=== PATIENT | female | born 1935 | race Caucasian/White ===

== ENCOUNTER 2018-11-26 18:44 | Inpatient (IN) | payer OTHER, BC ==
[~2018-11-26] VITALS: Ht 157.5 cm; Wt 56.2 kg
[2018-11-26 18:46] VITALS: BP 143/76
[2018-11-26 20:53] LABS: ABSOLUTE NEUTROPHILS 5.1 thou/uL (1.4-8.2); BASOPHILS 0.8 % (0.0-2.0); EOSINOPHILS 4.6 % (0.0-3.0); HEMATOCRIT 32.9 % (37.0-47.0); HEMOGLOBIN 10.9 gm/dL (12.0-15.0); LYMPHOCYTES 17.1 % (24.0-44.0); MCH 29.4 pg (26.0-34.0); MCHC 33.2 g/dL (28.0-37.0); MCV 88.5 fL (80.0-100.0); MONOCYTES 6.6 % (1.0-8.0); PLATELET COUNT 502 thou/uL (150-400); POLYS 70.9 % (36.0-66.0); RBC 3.71 mil/uL (4.20-5.00); WBC 7.2 thou/uL (4.0-11.0)
[2018-11-26 20:54] LABS: URINE BILIRUBIN NEGATIVE (Negative); URINE BLOOD NEGATIVE (Negative); URINE CLARITY SL CLOUDY; URINE COLOR YELLOW; URINE GLUCOSE-RANDOM* NEGATIVE (Negative); URINE KETONES TRACE (Negative); URINE PROTEIN (DIPSTICK) TRACE (Negative); URINE SPECIFIC GRAVITY 1.015 (1.005-1.035); URINE UROBILINOGEN 0.2 E.U./dl (0.2-1.0)
[2018-11-26 20:57] LABS: URINE LEUKOCYTES-REFLEX 1+ (Negative); URINE NITRITE-REFLEX POSITIVE (Negative)
[2018-11-26 21:01] LABS: BACTERIA-REFLEX >30 Many /HPF (None Seen); CRYSTALS None Seen /LPF (None Seen); HYALINE CASTS 0-3 Few /LPF (None Seen); SQUAMOUS 0-3 Few /LPF (0-3); URINE RBC 3-10 Few /HPF (0-2); URINE WBC-REFLEX 6-15 Few /HPF (0-5)
[2018-11-26 21:04] LABS: ANION GAP 12 mmol/L (7-16); BUN 31 mg/dL (7-18); CALCIUM 9.2 mg/dL (8.5-10.1); CHLORIDE 97 mmol/L (98-107); CO2 25 mmol/L (21-32); CREATININE 1.2 mg/dL (0.6-1.0); GLUCOSE 148 mg/dL (74-106); SODIUM 134 mmol/L (136-145)
[2018-11-26 21:04] LABS: AMP/METHAMP Negative (Negative); BARBITURATES Negative (Negative); BENZODIAZEPINES Negative (Negative); COCAINE Negative (Negative); METHADONE Negative (Negative); OPIATES Negative (Negative); PCP Negative (Negative)
[2018-11-26 21:08] LABS: ALBUMIN 2.7 g/dL (3.4-5.0); SALICYLATE < 2.8 mg/dL (2.8-20.0); SGOT 7 U/L (15-37); SGPT 14 U/L (30-65); TOTAL BILIRUBIN 0.2 mg/dL (<0.1-1.0); TOTAL PROTEIN 7.8 g/dL (6.4-8.2)
[2018-11-26 22:07] VITALS: BP 118/56
[2018-11-26 23:30] VITALS: BP 134/70
[2018-11-27 00:33] VITALS: BP 144/73
--- NOTE | 2018-11-27 02:21 | NUR ---
HEAD TO TOE ASSESSMENT COMPLETE. RLE R ANKLE BRUISE [id number]. L LE ANTERIOR BRUISE AND OPENED SCAB NOTED. LLE POSTERIOR BRUISE NOTED. L UE BRUISE 4CM X 6CM. D/C IV SITE WITHOUT REDNESS, HEAT NOTED. BLOOD DRAW BY LAB IN L AC. R UE BRUISE TO HAND 5CM X 5 CM NOTED. 2 SCABS AT R WRIST. ONE SCAB IS 3CM X 3 CM. SECOND SCAB IS 1CM X 1CM.
--- NOTE | 2018-11-27 06:40 | NUR ---
SLEPT 4.0 HOURS. AT TIMES WAS SITTING UP IN BED AND TAKING HOSPITAL GOWN OFF. DENIED NEEDS, BUT COULD NOT SAY WHAT SHE WAS DOING OR WHAT SHE WANTED.
--- NOTE | 2018-11-27 07:55 | EKG ---
[place] [address] [facility] [place] [address] ELECTROCARDIOGRAM REPORT Name: NASRIN ELMORE Room #: 524B-B ADM IN M.R.#: [id number] ������������������ Admission: 11/26/18 ������������������ Attend Phys: Hernan Hines MD Discharge: ������������������ Date of : 31 Report #: [id number] ����������������������������������������������������������������� [id number] THIS REPORT FOR: //name// [facility] ED Test Date: 2018-11-26 Test Time: 21:05:23 Pat Name: NASRIN ELMORE Department: Room: [facility] Gender: F 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: NATTY : [id number] Requested By: Matthew Echavarria Order Number: [id number] MD: Trey Dalton Measurements Intervals [place] Rate: 72 P: 6 [place]: 176 QRS: 15 QRSD: 91 T: 43 QT: 390 QTc: 427 Interpretive Statements Sinus rhythm Atrial premature complexes No previous ECG available for comparison Electronically Signed On 11-27-2018 7:55:02 TANK TESTER by Trey Dalton [email or web address] ��������������������������������������������� <ELECTRONICALLY SIGNED> ���������������������������������������� By: Trey Dalton MD, [facility] ��������������������������������������������� 11/27/18 [id number] 04 Trey Dalton MD, FACC /EPI
[2018-11-27 12:28] VITALS: BP 158/71
--- NOTE | 2018-11-27 15:10 | NUR ---
PATIENT HAS BEEN UP AND OUT ON THE UNIT MOST OF THE SHIFT. PATIENT TOOK ALL HER MEDICATION WHOLE IN APPLE SOURCE WITHOUT DIFFICULTY. APPETITE IS VERY GOOD, PATIENT CONSUMED 100% OF BREAKFAST AND 100% LUNCH, SHE DRINKING FLUID WELL TOO. PATIENT RESPONDS SLOWLY, BUT APPROPRIATELY TO ASSESSMENT QUESTIONS. SHE DENIES SUICIDAL AND HOMOCIDAL IDEATION. SHE HAS BEEN CALM, COOPERATIVE WITH CARE. NO AGGRESSION, OR AGITATION NOTED. PATIENT IS CURRENTLY IN ART GROUP, PARTICIPATING ACTIVELY. PRN TYLENOL 650MG GIVEN FOR LOW BACK PAIN RATED 2/10, WITH POSITIVE EFFECT, WILL MONITOR FOR SAFETY.
[2018-11-27 16:12] VITALS: BP 158/71
[2018-11-27 19:25] VITALS: BP 118/51
--- NOTE | 2018-11-27 23:50 | NUR ---
ASSUMED CARE @19:15. SITTING IN THE DAYROOM WITH PEERS AND AIDE. VS 118/51 99 18 98.1F 98% ON ROOM AIR. 2100 CLONIDINE HELD D/T B/P OF 118/51. AMBULATES WITH X1 ASSIST AND GAIT BELT. WAS ABLE TO SWOLLOW MEDS WHOLE IN APPLESAUCE. EYEDROPS PROVIDED ORDERED. ABLE TO ANSWER QUESTIONS SLOWLY, APPEARS TO THINK ABOUT THE ANSWER BEFORE FORMING SPEACH. DENIES SI, HI. NO AGRESSIVE BEHAVIORS NOTED. ESCORTED TO BED X1 ASSIST WITH GAIT BELT @ 22:15, SLEEPING AT THIS WRITING. WILL CONTINUE TO MONITOR.
--- NOTE | 2018-11-28 05:48 | NUR ---
SLEPT 8 HOURS. UP TO BEDSIDE COMODE AND THEN AMBULATE X2 ASSIST WITH GAIT BELT INTO DAY ROOM @05:45.
[2018-11-28 09:01] VITALS: BP 150/72
[2018-11-28 14:29] VITALS: BP 150/72
[2018-11-28 15:58] VITALS: BP 150/72
--- NOTE | 2018-11-28 18:17 | NUR ---
ASSUMED CARE AT 0715 TODAY. HAS BEEN ON THE UNIT MUCH OF THE DAY. ATTENDED GROUPS. HAS NOT MADE ANY SI/HI, VAH STATEMENTS TODAY. ATE MEALS ON THE UNIT. HAS NOT SPOKE MUCH TO STAFF, ONLY ANSWERING QUESTIONS WITH ONE WORD ANSWERS. NO ACTING OUT BEHAVIORS NOTED.
[2018-11-28 19:23] VITALS: BP 89/54
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
[2018-11-28 23:51] VITALS: BP 101/48
--- NOTE | 2018-11-29 05:03 | NUR ---
PATIENT ALERT AND ORIENTED XSELF. PATIENT RESPONDS SLOWLY AND IN SINGLE WORD RESPONSES. DOES NOT APPEAR TO BE IN PAIN. AMBULATES WITH ASSIST AND A WALKER. MULTIPLE EYE DROPS APPLIED TO R EYE. SLEPT MOST OF NIGHT.
[2018-11-29 05:48] LABS: HEMATOCRIT 29.1 % (37.0-47.0); HEMOGLOBIN 9.6 gm/dL (12.0-15.0); MCH 29.1 pg (26.0-34.0); MCHC 33.1 g/dL (28.0-37.0); MCV 87.8 fL (80.0-100.0); RBC 3.31 mil/uL (4.20-5.00); RDW 13.8 % (10.5-14.5); WBC 5.5 thou/uL (4.0-11.0)
[2018-11-29 06:03] LABS: CREATININE 1.4 mg/dL (0.6-1.0)
[2018-11-29 07:50] VITALS: BP 144/74
--- NOTE | 2018-11-29 15:36 | NUR ---
WOUND CONSULT: PT. WAS SEEN TODAY FOR SKIN EVALUATION. PT. IS SUFFERING WITH BILATERAL LOWER EXTREMITY HEMOSIDERIN STAINING ALONG WITH PURAPA. PT. ALSO HAS BILATERAL LOWER EXTERMITY EDEMA. PT. HAS SOME DRAINAGE IN HER LEFT LOWER EXTERMITY IN RELATION TO THIS. THERE ARE NO SIGNS OR SYMPTOMS OF INFECTION AT THIS TIME. RECOMMENDATIONS: WOUND CARE TO BILATERAL LOWER EXTREMITYS: GENTLY CLEANSE, APPLY LOTION TO HIS BILATERAL LOWER EXTREMITYS, COVER ANY WEEPING AREAS WITH BORDERED FOAM, APPLY BILATERAL TUBIGRIPS TO BILATERAL LOWER EXTREMITYS, KEEP LOWER EXTREMITYS ELEVATED. PT. AND STAFF NURSE WERE INSTRUCTED ON PLAN OF CARE.
--- NOTE | 2018-11-29 18:14 | NUR ---
VERY LITTLE COMMUNICATION. AMBULATED TO DINNING ROOM FOR BREAKFAST, VERY POOR APPETITE FOR BREAKFAST AND SPTTING OUT FOOD. MORE ALERT FOR LUNCH AND FED SELF 75% OF MEAL CONSUMED. IV STARTED BY IV NURSE AND 500ML BOLUS OF SALINE INFUSING AT 125 AN HOUR. REMAINED CONTINENT OF URINE VOIDED IN COMMODE AND URINE CULTURE SENT TO LAB. SON CAME INTO MEETING WITH DR AND INSTANTIZER OPERATOR. CONTINUE TO CHECK EVERY 12 MINUTES.
[2018-11-29 18:16] LABS: URINE BILIRUBIN NEGATIVE (Negative); URINE BLOOD NEGATIVE (Negative); URINE CLARITY CLEAR; URINE COLOR YELLOW; URINE GLUCOSE-RANDOM* NEGATIVE (Negative); URINE KETONES NEGATIVE (Negative); URINE LEUKOCYTES 1+ (Negative); URINE NITRITE NEGATIVE (Negative); URINE PROTEIN (DIPSTICK) NEGATIVE (Negative); URINE UROBILINOGEN 0.2 E.U./dl (0.2-1.0)
[2018-11-29 18:23] LABS: SQUAMOUS 0-3 Few /LPF (0-3)
[2018-11-29 18:24] LABS: BACTERIA 1-9 Few /HPF (None Seen); CASTS None Seen /LPF (None Seen); CRYSTALS None Seen /LPF (None Seen); URINE RBC None Seen /HPF (0-2); URINE WBC 0-5 Rare /HPF (0-5)
[2018-11-29 20:08] VITALS: BP 140/77
--- NOTE | 2018-11-30 01:14 | NUR ---
Alert, nonverbal, calm and cooperative; vss, afebrile. Patient took medication with apple sauce, tolerated well, no signs of n/v. Patient bed rest now, with eyes closed, chest up and down. will keep monitoring.
[2018-11-30 05:36] LABS: HEMATOCRIT 31.8 % (37.0-47.0); HEMOGLOBIN 10.4 gm/dL (12.0-15.0); MCH 29.1 pg (26.0-34.0); MCHC 32.8 g/dL (28.0-37.0); MCV 88.6 fL (80.0-100.0); RBC 3.59 mil/uL (4.20-5.00); RDW 13.9 % (10.5-14.5); WBC 5.1 thou/uL (4.0-11.0)
[2018-11-30 05:43] LABS: CALCIUM 8.9 mg/dL (8.5-10.1); MAGNESIUM 2.3 mg/dL (1.8-2.4); POTASSIUM 4.5 mmol/L (3.5-5.1)
[2018-11-30 07:24] VITALS: BP 154/82
--- NOTE | 2018-11-30 16:24 | NUR ---
Karime met with Bel from [facility] concerning home health and private duty. Edgar the pt son requested that his mother have assistance at home. KARIME was able to schedule an family meeting with Amy on Monday, December 03, 2018.
--- NOTE | 2018-11-30 17:15 | NUR ---
7A-7P: Patient to dining room for all meals, limitied participation in therapy/groups, does sit quitely in DR doing word search in afternoon. Dr. Johnson here this a.m., update reported to Dr. Johnson RT urine retention and bladder scan results, new order for Flomax 0.4mg daily, continue to monitor bladder. Dr. Jauregui here, new orders wrote for bladder scan parameters with straight cath instructions. Patient voided approx 400cc cloudy yellow urine on bedside commode, bladder scan done, approx 625cc noted on scan, sterile straight cath done, 600cc cloudy foul smelling yellow urine return. Update on findings reported to Dr. Jauregui and Dr. Johnson, new order from Dr. Johnson to continue bladder scan BID and straight cath if >450cc and Accu checks BID . Patient non-verbal this a.m., minimal speaking noted this afternoon, no episodes of hallucinations or aggressive behavior. Patient continues to be dependent on staff for all ADL's, with encouragement needed at meals. PO meds given whole, no adverse affects noted from medications, continues on ABT for tx of UTI. in applesauce, glucose check @ 1700= 116. Will continue to monitor tolerates well, no apparent swallowing difficulty noted.
[2018-11-30 19:39] VITALS: BP 100/49
[2018-11-30 23:46] VITALS: BP 100/49
--- NOTE | 2018-12-01 05:30 | NUR ---
PT UP IN DAY AREA EARLY IN EVENING. TOOK HS MEDS AND EYE GTTS AFTER SNACKS. ESCORTED TO BED USING WALKER. UNABLE TO VOID AT HS. UP TO BSC DURING NIGHT STILL UNABLE TO VOID. 0500 UP TO BSC CONT TO BE UNABLE TO VOID. BLADDER SCAN PERFORMED, [address] CATHED RESULTS 900 URINE OUT. PT FEELS "BETTER" SLEPT WELL, AND CURRENTLY RESTING COMFORTABLY.
[2018-12-01 07:00] VITALS: BP 150/80
[2018-12-01 10:45] VITALS: BP 150/80
--- NOTE | 2018-12-01 17:16 | NUR ---
7a-7p: Patient ambulatory on unit with assist of walker and 1 staff, gait slow, with intermittent episodes of non-mobility and non-verbal. Participated in group activities x2 this shift, cooperative with staff, follows directions. Patient voided >500cc @ noon, and had lg BM on commode. Appetite good, consumes 75% of meals, feeds self with set-up assist needed, takes 30-45min to eat meals. Cont.ABT for UTI, no adverse reactions noted, afebrile (97.4). Bladder scan completed @ 1700, 40cc noted in bladder, no straight cath needed @ this time. Will continue to monitor.
--- NOTE | 2018-12-01 22:12 | NUR ---
ASSUMED CARE @ 19:15. SITTTING IN THE DAY ROOM WITH PEERS. VS 36.3C 150/80 94 18. FSBS 108 @ 20:18 CLONDADINE GIVEN. A&OX1-2.
[2018-12-02 08:10] VITALS: BP 123/56
--- NOTE | 2018-12-02 10:42 | NUR ---
CESAR CATHETER INSERTED PER ORDER FROM DR. SHIRIN GALVIN. INSERTED 16 FR. WITHOUT DIFFICULTY TO DEPENDENT DRAINAGE BAG. VAGINAL WORTS NOTED TO AREA. NO DISCHARGE NOTED. 775 ML IMMEDIATE RETURNED OF CLEAR YELLOW URINE. LINE INSTALLATION SUPERVISOR WAS IN ROOM TESTING PT.
[2018-12-02 12:03] VITALS: BP 123/56
[2018-12-02 19:52] VITALS: BP 115/61
--- NOTE | 2018-12-03 07:18 | NUR ---
no abnormal discharge noted thru night. henson catheter draining clear alisia urine - 1400 ml. i left consult information with Dr Billingsley's answering service, noted previous order for COMMERCIAL ESCROW ASSISTANT consult. c/o pain BLE from tubigrips which were assisting withn 2-3 + edema. foam dressing left lower leg intact. patient had minimal vocalization during the evening. pleasant, conversational this morning.
[2018-12-03 08:00] VITALS: BP 124/69
--- NOTE | 2018-12-03 08:22 | NUR ---
Recreational Therapy Weekly Progress Note Date of Admission: 11/26/18 Date of Activity Therapy Assessment: 11/29/18 Activity Goal: 1 Group per day or 1:1 as needed. Initial Goal: Increase socialization and aid in development of positive relationships amongst milieu. Weekly progress towards goal: Did not achieve goals Group participation level: Needs some assistance Behaviors observed: Patient minimally verbalizes with EYELET RIVETER, other staff, and peers. Ocassionally responds with simple/one worded answers. EYELET RIVETER has provided pt with word searches as she stated during her assessment that this is something she enjoys. Pt is able to complete this in a lengthy time spand. Pt denies most requests for group participation, or does not respond. Plan: No change towards goal
--- NOTE | 2018-12-03 09:27 | NUR ---
CALLED TO PHARMACY ABOUT GETTING LIQUID FERROUS SULFATE UP. THEY REPLIED THAT A 30 ML BOTTLE UP ON 12/02. PT. RECEIVED THIS BY RN. MEDICATION PLACED ON HOLD THIS MORNING FOR SEVERAL DAYS. NOTIFIED.
--- NOTE | 2018-12-03 18:22 | NUR ---
HAS BEEN NON-VERBAL THROUGHOUT SHIFT-REMAINS MUTE DURING ATTEMPTED ASSESMENT OFFERING NO VERBAL RESPONSES TO QUESTION ASKED. IS FEEDING SELF-PSYCHMOTOR RETARDATION PRESENT. SLIGHTLY RESISTIVE AT TIMES WITH CARES SHE WILL STIFFEN UP AND OFFER ACTIVIE RESISTANCE DURING TOILETING,PERINEAL CARE AND PELVIC EXAM COMPLETED BY DR. DUONG. WALKS SHORT DISTANCES IN HALLWAY WITH SBA 1 STAFF AND WALKER. FLAT AFFECT-EYES WIDE OPEN AND FIXED ON NO PARTICULAR OBJECT-AT TIMES WILL APPEAR TO WATCH STAFF AND OR PEERS AUSTIN-?HYPERVIGILANT VS RESPONDING TO INTERNAL STIMULI-UNABLE TO DETERMINE D/T LACK OF VERBAL RESPONSES-CESAR CATHETOR PATENT-DRAINING CLEAR YELLOW URINE. -
[2018-12-03 19:50] VITALS: BP 120/64
--- NOTE | 2018-12-04 06:21 | NUR ---
ASSUMED CARE @19:15. SITTING WITH PEERS IN THE DAY ROOM AT A TABLE. TOOK 2100 MEDS WITH YOGART AND WATER. SLEPT WELL, TOTAL OF 7.4 HOURS. URINE OUTPUT 600 CC CLEAR YELLOW URINE DRAINING TO GRAVITY BY CESAR.
--- NOTE | 2018-12-04 10:35 | NUR ---
WOUNDCARE FOLLOW UP; ASSESSMENT WAS COMPLETED. THE PATIENT WEARS TUBIGRIPS BILATERALLY FOR EDEMA. THE LEFT ANKLE WOUND IS FRAGIALLY HEALED AND COVERED WITH A BOARDERED FOAM DRESSING IN PLACE WITH NO DRAINAGE. RECOMMENDATION; CONTINUE TO USE A BORDERED FOAM DSG TO PROTECT THIS FRAGIALLY HEALED AREA. NO NEED TO FOLLOW THIS PATIENT/RECONSULT IF NEEDED. WOUND CARE WILL SIGN OFF.
[2018-12-04 14:28] VITALS: BP 116/46
--- NOTE | 2018-12-04 16:32 | NUR ---
WHEN REMOVING CATHETER, PER ORDER FROM CATIE Medina (H), OBSERVED A DISCOLORATION. APPEARED PETACHIA; WAS IMPRESSION OF LEG CATHETER STAT LOCK. PAD COVERING THE SNAP ON THE LEFT LEG HAD COME UNDONE, PRESSING ON THE PATIENT'S RIGHT LEG HAD COME UNDONE. NO BROKEN SKIN. CONTINUE TO MONITOR.
--- NOTE | 2018-12-04 18:51 | NUR ---
PATIENT VOIDED LARGE AMOUNT IN BEDSIDE COMMODE; IMMEASURABLE R/T PATIENT ALSO HAVING A BOWEL MOVEMENT. BLADDER SCAN MEASURED 1 ML URINE RESIDUAL IN BLADDER. CONTINUE TOILET TRAINING EVERY FOUR HOURS WHILE AWAKE.
[2018-12-04 19:44] VITALS: BP 100/56
[2018-12-04 21:52] VITALS: BP 100/56
--- NOTE | 2018-12-05 03:13 | NUR ---
PT IN BED SLEEPING AT [facility]. CESAR OUT 12/04. Q4H TOILETING WHILE AWAKE. TOOK HS MEDS PRESCRIBED. TOLERATED ASSESSMENT BY STAFF. SLEPT WELL THROUGH THE NIGHT. CONTINUES TO SLEEP AT THIS TIME.
[2018-12-05 07:35] VITALS: BP 142/72
--- NOTE | 2018-12-05 11:43 | NUR ---
Dr. Jauregui left a voicemail with Edgar Wilson to update that the henson was taken out, and the urinary rentention d/c. Pt will need to be discharge home on November. Dr. Jauregui spoke with Barbra the daughter in-law of the pt stating that is ready to be discharge. SW will complete level care assessment for [place]. SW will assist with finding a PRINTER SLOTTER OPERATOR to assist with private duty for the family. SW will follow-up with pt upon discharge.
--- NOTE | 2018-12-05 18:17 | NUR ---
ASSUMED CARE AT 0715 THIS MORNING. PT. WAS TAKEN TO THE BATHROOM BEFORE BREAKFAST BUT DID NOT URINE. SHE WAS TAKEN AFTER BREAKFAST AND URINATED 200 ML. SHE DID NOT URINATE AT NOON BUT AT 1700 SHE AGAIN URINATED 200 ML. SHE WORKED ON A PUZZLE WITH STAFF AND DID DO SOME OF THAT HERSELF. SHE TALKED TO STAFF ABOUT HER CHILDREN BUT OTHERWISE HAS NOT SPOKEN MUCH AT ALL TODAY, ONLY SIMPLE ONE WORD ANSWERS AT TIMES. FEED HERSELF MEALS WITHOUT PROBLEMS. TAKEN ALL MEDICATIONS WITHOUT PROBLEMS NOTED.
[2018-12-05 20:24] VITALS: BP 99/49
--- NOTE | 2018-12-05 22:02 | NUR ---
assumed care @ 19:15. IN DAY ROOM, SITTING AT TABLE WATCHING TV. 2100 MEDS GIVEN WHOLE IN APPLESAUCE. PRN TYLENOL 650 GIVEN FOR GENERAL ARTHRITIS PAIN. FOLLOWS INSTRUCTIONS, BUT DOES NOT VERBALIZE. WENT TO BED X1 ASSIST.
--- NOTE | 2018-12-06 06:26 | NUR ---
SLEPT 7 HOURS.
[2018-12-06 07:32] VITALS: BP 112/71; BP 132/65
[2018-12-06 10:46] VITALS: BP 132/65
[2018-12-06] MEDS ORDERED: FLOMAX0.4 MG PO (13:00)
[2018-12-06] MEDS ORDERED: FERROUS SU220 MG/52 PO (13:00)
[2018-12-06] MEDS ORDERED: CATAPRES0.1 MG PO (13:01)
[2018-12-06] MEDS ORDERED: AMLODIPINE BESY10 MG PO (13:02)
[2018-12-06] MEDS ORDERED: COZAAR 50 MG TA50 M1 PO (13:03)
[2018-12-06] MEDS ORDERED: BRIMONIDINE TART5 ML OPHTHALMIC (13:06)
[2018-12-06] MEDS ORDERED: MIRALAX17 GM PO (13:07)
[2018-12-06] MEDS ORDERED: TRUSOPT OCUMETE10 ML OPHTHALMIC (13:07)
[2018-12-06] MEDS ORDERED: SYNTHROID112 MC1 PO (13:08)
[2018-12-06] MEDS ORDERED: PEPCID20 MG PO (13:08)
[2018-12-06] MEDS ORDERED: SENNA-TIME S T1 EACH PO (13:08)
[2018-12-06 14:16] VITALS: BP 132/65
--- NOTE | 2018-12-06 14:19 | NUR ---
Patient Name: NASRIN ELMORE Admission Date: 11/26/18 DISCHARGE PLAN: Pt will be d/c home with her children. Care Assessment: Pt was assessed by Dr. Jauregui, and pt was diagnosed with Major Neurocognitve Disorder with behavior disturbance. Pt will need placement into a memory care setting. Level II Assessment: None Transportation: Pt will be transported by her son Edgar Elmore. Special Instructions/Notes: Pt family was recommended to . Pt family is applying for Medicaid to be able allow the pt to reside into a halfway care for facility that emphasize in memory care. Pt daughter Barbra will utilize private duty to assist with the care of the pt wellbeing. DISCHARGE TO FACILITY: Facility: Phone: Fax: Address: Contact Name: Phone: PCP: KENDALL Psychiatrist: HOWARD, family will look for psychiatrist to assist pt with her care.
--- NOTE | 2018-12-06 17:04 | NUR ---
1640: Sandro Parsons here to escort patient home via private vehicle. Patient up to commode, voided 900cc. DC instructions, scripts and education for Flomax given to sandro Parsons. Transported via w/c to private vehicle, accomp by sandro and [facility] transportation broker.
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
== END 2018-12-06 16:45 | disposition home or self-care (01) | DRG 56 ==
LOC: ER 18:44 → SBH 21:09 → EROBS 21:09 → SBH 21:09 → ENTRNSPT 12-06 16:32 → SBH 12-06 16:45
PROVIDERS: Emergency Medicine; Internal Medicine; ADMIT Psychiatry & Neurology Psychiatry
DX: G30.9 Alzheimer's disease, unspecified (principal); E43 Unspecified severe protein-calorie malnutrition; F01.51 Vascular dementia, unspecified severity, with behavioral disturbance; N30.00 Acute cystitis without hematuria; N17.9 Acute kidney failure, unspecified; H10.9 Unspecified conjunctivitis; F20.9 Schizophrenia, unspecified; B96.20 Unspecified Escherichia coli [E. coli] as the cause of diseases classified elsewhere; E86.0 Dehydration; R33.9 Retention of urine, unspecified; N89.8 Other specified noninflammatory disorders of vagina; I10 Essential (primary) hypertension; E03.9 Hypothyroidism, unspecified; Z87.891 Personal history of nicotine dependence; Z68.22 Body mass index [BMI] 22.0-22.9, adult; Z79.899 Other long term (current) drug therapy
CPT/HCPCS: 10880